=== PATIENT | male | born 1970 | race Caucasian/White ===

== ENCOUNTER → 2021-07-02 07:52 | Outpatient (BNVA) | payer OTHER, SELFPAY | PROVIDERS: Visit Provider Internal Medicine | DX: S83.91XA Sprain of unspecified site of right knee, initial encounter (principal); W23.0XXA Caught, crushed, jammed, or pinched between moving objects, initial encounter | CPT/HCPCS: 73564; 99203 ==

== ENCOUNTER → 2021-07-05 09:17 | Outpatient (BNVA) | payer OTHER, SELFPAY | PROVIDERS: Visit Provider Internal Medicine | DX: M23.91 Unspecified internal derangement of right knee (principal) | CPT/HCPCS: 99213 ==

== ENCOUNTER → 2021-07-08 11:03 | Outpatient (BNVA) | payer OTHER, SELFPAY | PROVIDERS: Visit Provider Internal Medicine | DX: M23.91 Unspecified internal derangement of right knee (principal) | CPT/HCPCS: 99213 ==

== ENCOUNTER → 2021-07-15 07:44 | Outpatient (BNVA) | payer OTHER, SELFPAY | PROVIDERS: Visit Provider Internal Medicine | DX: M23.91 Unspecified internal derangement of right knee (principal); M25.461 Effusion, right knee | CPT/HCPCS: 99213 ==

== ENCOUNTER 2021-07-15 08:28 | Outpatient (REF) | payer OTHER, SELFPAY ==
[2021-07-15 09:00] LABS: COVID-19 Test Negative (Negative)
== END 2021-07-15 08:29 | disposition home or self-care (01) ==
LOC: HO.LAB 08:28
PROVIDERS: Visit Provider Internal Medicine
DX: Z20.822 Contact with and (suspected) exposure to COVID-19 (principal)
CPT/HCPCS: 36415; 87635; C9803

== ENCOUNTER 2021-07-26 18:42 | Outpatient (REF) | payer OTHER, SELFPAY ==
--- NOTE | ~2021-07-26 | MR_ITS ---
EXAMINATION: MR KNEE WITHOUT CONTRAST, RIGHT CLINICAL INFORMATION: Pain status post twisting injury. Effusion. Crepitus. COMPARISON: Radiographs dated 07/02/2021. TECHNIQUE: MRI of the knee without contrast was performed using routine sequences on a high-field scanner. FINDINGS: MENISCI: Medial Meniscus: There is a complex tear of the posterior horn and body medial meniscus with partial extrusion of the body. A 1 cm flap fragment at the meniscal body is displaced proximally in the medial meniscofemoral recess (image 15/28 of series 5). There is a corresponding defect in the meniscal body just posterior to this with minimal residual intact orthotopic meniscal tissue. A horizontal cleavage components of the tear terminate the posterior horn with associated free edge fraying. Lateral Meniscus: Intact. LIGAMENTS: Cruciate: ACL is diminutive, either due to developmental variation or an old partial tear. There is mass effect upon the ACL produced by femoral osteophytes at the lateral margin of the intercondylar notch. PCL is normal. Collateral: There is a small amount of fluid in the MCL bursa. MCL is otherwise unremarkable. LCL complex is normal. EXTENSOR MECHANISM: Insall-Salvati ratio is 0.74, indicating patella baja. Patellar enthesopathic spur is present at the quadriceps tendon insertion. Mild proximal patellar tendinosis. Quadriceps and patellar tendons are intact. ARTICULAR CARTILAGE/BONE: Patellofemoral Compartment: Moderate nonuniform articular cartilage loss at the patella is most pronounced centrally where there is full-thickness chondral fissuring. Mbqzekri-ee-ssmni marginal osteophytes. Additional moderate nonuniform articular cartilage loss is present at the trochlea with full-thickness chondral fissuring and articular cortical irregularity. Normal trochlear morphology. Medial Compartment: There is moderate diffuse nonuniform articular cartilage loss at the medial femoral condyle with foci of full-thickness chondral fissuring. More fgsl-rk-iomrikhz cartilage loss is present at the medial tibial plateau. Moderate-sized marginal osteophytes. Lateral Compartment: Moderate-sized marginal osteophytes. There is usxv-qk-hwohkhuy nonuniform cartilage loss at the lateral tibial plateau along the medial margin. A 1.3 x 1 cm high-grade chondral defect is present at the posterior weightbearing surface with associated central osteophyte. There is full-thickness chondral fissuring at the posterior margin of the lateral tibial plateau. Proximal tibiofibular joint: There is moderate osteoarthritis at the proximal tibiofibular joint. A small non-articular fracture is suspected just anterior to the proximal tibiofibular joint along the lateral aspect of the tibial plateau at the attachment of the tibiofibular joint capsule. This is likely subacute in nature. The surrounding marrow signal is edematous. JOINT FLUID AND BURSAE: Small joint effusion and Muñoz's cyst. A plane of scar tissue is present in the prepatellar soft tissues with mild surrounding edema signal, likely due to chronic changes of prepatellar bursitis. MR/MR knee RT wo con IMPRESSION: 1. Moderate tricompartmental osteoarthritis, most pronounced in the medial compartment. 2. Complex tear of the posterior horn and body of the medial meniscus. 3. Nondisplaced fracture at the non-articular margin of the lateral tibial plateau just anterior to the proximal tibiofibular joint, likely subacute. Surrounding marrow edema. 4. Patella baja with mild patellar tendinosis. 5. Chronic changes of prepatellar bursitis.
== END 2021-07-26 18:43 | disposition home or self-care (01) ==
LOC: HO.MRI 18:42
PROVIDERS: Visit Provider Internal Medicine
DX: M25.561 Pain in right knee (principal)
CPT/HCPCS: 73721

== ENCOUNTER → 2024-11-28 09:33 | Outpatient (BNVA) | payer OTHER, SELFPAY | PROVIDERS: Visit Provider Physician Assistant | DX: S60.851A Superficial foreign body of right wrist, initial encounter (principal); W45.8XXA Other foreign body or object entering through skin, initial encounter | CPT/HCPCS: 99204 ==

== ENCOUNTER 2024-11-29 13:08 | Outpatient (AMB) | payer OTHER, SELFPAY ==
--- NOTE | 2024-11-29 13:17 | A.OFFVIS_ITS ---
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 Patient reports that his hand slipped causing a splinter to his right palm. He was seen at work connection who attempted to remove splinter. They were unsuccessful and he was referred to hand surgery. Currently he has very mild discomfort, if any. No numbness or tingling. He does not recall any drainage, stating he washes his hands frequently. He continues taking amoxicillin that was prescribed by work connection. 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 Patient reports that his hand slipped causing a splinter to his right palm. He was seen at work connection who attempted to remove splinter. They were unsuccessful and he was referred to hand surgery. Currently he has very mild discomfort, if any. No numbness or tingling. He does not recall any drainage, stating he washes his hands frequently. He continues ta antonietta amoxicillin that was prescribed by work connection. 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 Neuro: Normal sensation of the tips of all digits of the right hand at this time Vascular: Cap refill brisk Pain: No tenderness to palpation about small wound on right wrist] No pain with range of motion of right hand ROM: Patient is able to make a closed fist and extend all digits of the right hand fully Skin: Small, punctate wound with no active discharge or bleeding noted on the volar aspect of the right wrist just radial to the midline General: No ecchymosis, erythema, or evidence of infection. Psych: Appears grossly normal Affect normal Attitude cooperative Assessment & Plan Assessment & Plan (1) Foreign body of right wrist: Code(s): S60.851A - Superficial foreign body of right wrist, initial encounter Category: Medical Plan 1. Foreign body of right wrist I educated the patient about the condition. I discussed both operative and nonoperative treatment options. The patient would like to proceed with surgery. The risks and benefits of operative treatment were discussed with the patient and the patient wishes to proceed with surgery. These risks include, but are not limited to, risk of damage to blood vessels, nerves, tendons, infection, recurrence, incomplete relief of preoperative symptoms, persistent pain, possible need for further surgery, and the risks associated with regional blocks and/or anesthesia. Plan is to take the patient to the operating room at some point in the next few weeks for the following procedures: 1. Right wrist foreign body removal under general All of the preoperative paperwork including the consent was discussed today. All of the patient's questions were answered in the clinic today. The patient understands that they will be in contact with our neurosurgical physician assistant to discuss scheduling their procedure. Patient denies diabetes, blood thinners, asthma, heart issues, lung issues, kidney issues, or current smoking. 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 and ?I guess I will probably see you on Monday? Coding Level of Care Code New Pt Level 4 (68537) Diagnoses Foreign body of right wrist S60.851A
--- OUTSIDE RECORDS SUMMARY | 2024-11-29 13:35 | XMS_ITS | Clinical Summary ---
[facility] Organization [facility] it Address [address] [place] [address] Care Team Providers Care Rn Ostomy Name Role Phone Job Santos MD Primary Care Provider [phone] Social History Tobacco Use Types Packs/Day Years Used Date Smoking Tobacco: Never Assessed Sex and Gender Information Value Date Recorded Sex Assigned at Not on file Legal Sex Male 6:09 AM EST Gender Identity Not on file Sexual Orientation Not on file Last Filed Vital Signs Vital Sign Reading Time Taken Comments Blood Pressure 158/90 05/21/2022 4:20 PM EDT L A rm Pulse 90 05/21/2022 4:20 PM EDT Temperature - - Respiratory Rate - - Oxygen Saturation - - Inhaled Oxygen Concentration - - Weight - - Height - - Body Mass Index - - Plan of Treatment Health Maintenance Due Date Last Done Comments Hepatitis B Vaccines (1 of 3 - 19+ 3-dose series) 11/24/1987 Pneumococcal Vaccine: 50+ Ye ars (1 of 1 - PCV) 2018 Zoster Vaccines (1 of 2) 2018 Cholesterol Screening (Lipid Panel) 07/03/2022 Colorectal Cancer Screening: Colonoscopy 07/03/2022 Depression Screening 07/03/2022 HIV Screening 07/03/2022 Hepatitis C Screening 07/03/2022 Social Influencers of Health Screening 07/03/2022 COVID-19 Vaccine ( - 2023-2 5 season) 2024 Influenza Vaccine (Season Ended) 2025 DTaP,Tdap,and Td Vaccines (2 - Td or Tdap) 03/14/2033 03/14/2023 HIB Vaccines Aged Out No longer eligi ble based on patient's age to complete this topic HPV Vaccines Aged Out No longer eligi ble based on patient's age to complete this topic Hepatitis A Vaccines Aged Out No long er eligible based on patient's age to complete this topic IPV Vaccines Aged Out No longer eligi ble based on patient's age to complete this topic MMR Vaccines Aged Out No longer eligi ble based on patient's age to complete this topic Meningococcal ACWY Vaccine Aged Out N o longer eligible based on patient's age to complete this topic Meningococcal B Vaccine Aged Out No l onger eligible based on patient's age to complete this topic Pneumococcal Vaccine: Pediat rics (0 to 5 Years) and At-Risk Patients (6 to 64 Years) Aged Out No longer eligi ble based on patient's age to complete this topic RSV Immunization Patients Un chio 20 months Aged Out No longer eligible b ased on patient's age to complete this topic Varicella Vaccines Aged Out No longer eligible based on patient's age to complete this topic Care Teams Rn Ostomy Relationship Specialty Start Date End Date Job Santos MD [address] [address] PCP - General Internal Medicine 10/17/11
== END 2024-11-29 13:45 | disposition home or self-care (01) ==
LOC: HO.HOS 13:15
DX: S60.851A Superficial foreign body of right wrist, initial encounter (principal)
CPT/HCPCS: 99204

== ENCOUNTER → 2024-11-29 13:08 | Outpatient (BNVA) | payer OTHER, SELFPAY | DX: S60.851A Superficial foreign body of right wrist, initial encounter (principal); W45.8XXA Other foreign body or object entering through skin, initial encounter; Y93.9 Activity, unspecified; Y92.9 Unspecified place or not applicable; Y99.0 Civilian activity done for income or pay | CPT/HCPCS: 99202 ==

== ENCOUNTER 2024-12-02 09:10 | Day surgery (SDC) | payer OTHER, SELFPAY ==
--- OUTSIDE RECORDS SUMMARY | 2024-11-29 14:13 | XMS_ITS | Clinical Summary ---
Author Organization [facility] it Address [address] [place] [address] Care Team Providers Care Corrugator Helper Name Role Phone Job Santos MD Primary Care Provider [phone] Social History Tobacco Use Types Packs/Day Years [...] age to complete this topic Care Teams Corrugator Helper Relationship Specialty Start Date End Date Job Santos MD [address] [address] PCP - General Internal Medicine 10/17/11
--- NOTE | 2024-12-02 09:06 | HO.ANESPROP2 ---
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 Meds Allergies Allergy/AdvReac Type Severity Reaction Status Date / Time No Known Allergies Allergy Verified 11/29/24 13:21 Home Medications ?Medication ?Instructions ?Recorded ?Confirmed ?Last Taken ?Type amlodipine 5 mg tablet 5 mg PO DAILY 11/29/24 11/29/24 Unknown History cyclobenzaprine 10 mg tablet 10 mg PO TID 11/29/24 11/29/24 Unknown History ibuprofen 800 mg tablet 800 mg PO TID PRN pain 11/29/24 11/29/24 Unknown History lisinopril 20 1 tab PO DAILY 11/29/24 11/29/24 Unknown History mg-hydrochlorothiazide 25 mg tablet Exam Airway Mallampati Class: II TM Dist: >3cm Neck ROM: Full Assessment and Plan Assessment Anesthesia Assessment: Anesthesia Plan Discussed and Chart Reviewed Final Anesthetic Review Family History of Problems with Anesthesia: No History of Problems with Anesthesia: No NPO: Yes ASA Class: II Final Preanesthetic Review: No Changes in Pt Med Stat, Meds/Allgs Chart Reviewed, Consent Obtained/Reviewed and Anes Risks/Benef Reviewed Patient Risk: Low Procedure Risk: Low Anesthetic Plan Anesthetic Plan: GA Disposition: Standard PACU
[2024-12-02 10:26] VITALS: BP 125/81; PULSE 68; RESP 14; TEMP 36.4; O2SAT 96
[2024-12-02] MEDS: Lactated Ringers 1,000 ML 80 ML IVCONT (11:26)
--- NOTE | 2024-12-02 12:20 | MHC.SHP ---
Pre-Procedural Eval Section A - 24 Hr Update-Section A only Date of Service: 12/02/24 The patient is an INPATIENT: No Changes since office visit: No Cold of Flu in the past 2 weeks, No New Medical Problems, No Changes in Medication and No Patient answered all questions The patient has been examined within 24 hours of the surgical procedure. The History & Physical has been completed within 30 days and I have reviewed it.: Yes Section B - Complete if H&P > 30 days Chief Complaint: foreign body of left wrist, initial Allergies: Allergies Allergy/AdvReac Type Severity Reaction Status Date / Time No Known Allergies Allergy Verified 12/02/24 10:29 Plan I have reviewed the history and physical and performed a pertinent physical examination on my patient. No changes have occurred unless specified. Time Spent With Patient Time: Total time managing care of this patient today ____ minutes.
--- NOTE | 2024-12-02 12:21 | P.OP_ITS ---
Operative Note Operative Note Date of Service: 12/02/24 Narrative: Operative Note Narrative: Preop diagnosis: 1. right hand foreign body Postop diagnosis: Same Procedure: 1. Right hand removal of foreign body, subcutaneous Surgeon: Marilu Tirado MD Garage Construction Equipment Mechanic: None Anesthesia: General Anesthesia Findings: A 10 mm by 2 mm diameter wooden foreign body was removed from the subcutaneous tissues of the thenar mass just radial to the carpal tunnel Implants: None Tourniquet time: 15 minutes EBL: 5.0 ml Specimen: None Drains: None Complications: None Disposition: Brought to the recovery room in stable condition Plan: Follow-up in 10-14 days for wound check, suture removal Indications: The patient is a 54 year old man with a wooden splinter in the thenar aspect of his right hand just radial to the carpal tunnel. . The risks and benefits of operative treatment, including but not limited to risk of damage to blood vessels, nerves, tendons, infection, recurrence, persistent pain or numbness, incomplete resolution of preoperative symptoms, or need for further surgery were discussed with the patient and they wished to proceed with surgery. In preop hold the patient help me identify the entry point of the foreign body in the direction of its path. Procedure: Once consent was obtained patient was brought back to the operating suite and placed in the operating table in a supine position. . Perioperative antibiotics and anesthesia was administered by the anesthesia team. A tourniquet was applied to the proximal aspect of the right upper extremity and the limb was prepped and draped in a standard surgical fashion. The limb was elevated exsanguinated with Esmarch bandage and the tourniquet inflated to 250 mm of mercury for a total tourniquet time of 15 minutes. I made a 2 cm longitudinal incision over the thenar mass just radial to the carpal tunnel. This was made from the entry point of the foreign body extending proximally in the direction of its path. The incision was made through the skin to the subcutaneous tissues using a 15. Blade. We dissected into the subcutaneous tissues looking for the foreign body. There was a wooden foreign body identified in the subcutaneous tissues it measured 10 mm x 2 mm diameter. I removed it from the patient. No further foreign bodies were identified. The wound was then irrigated with normal saline. At this point the tourniquet was deflated and hemostasis obtained with a brief period of local pressure. The skin edges were reapproximated with 5-0 nylon suture. The wound was infiltrated with some 1% lidocaine with epinephrine for postop pain control and a sterile dressing was applied. The patient appears to have tolerated the procedure well and with no complications. All digits were well vascularized conclusion of the case.
[2024-12-02 13:32] VITALS: BP 102/59; PULSE 67; RESP 16; TEMP 36.5; O2SAT 97
[2024-12-02 13:35] VITALS: BP 99/59; PULSE 67; RESP 16; O2SAT 97
[2024-12-02 13:40] VITALS: BP 107/62; PULSE 68; RESP 16; O2SAT 97
[2024-12-02 13:45] VITALS: BP 109/63; PULSE 68; RESP 16; O2SAT 97
== END 2024-12-02 14:46 | disposition home or self-care (01) ==
PROVIDERS: Visit Provider Orthopaedic Surgery
PROC: (CPT 10120; principal; 2024-12-02 11:50)
DX: S60.551A Superficial foreign body of right hand, initial encounter (principal); W45.8XXA Other foreign body or object entering through skin, initial encounter; W22.8XXA Striking against or struck by other objects, initial encounter; Y93.9 Activity, unspecified; Y92.69 Other specified industrial and construction area as the place of occurrence of the external cause; Y99.0 Civilian activity done for income or pay; Z79.1 Long term (current) use of non-steroidal anti-inflammatories (NSAID); Z79.899 Other long term (current) drug therapy; Z98.890 Other specified postprocedural states
CPT/HCPCS: 10120; J0690; J1100; J2003; J2004; J2371; J2405; J2704; J3010

== ENCOUNTER → 2024-12-02 09:10 | Outpatient (BNV) | payer OTHER, SELFPAY | PROVIDERS: Visit Provider Orthopaedic Surgery | DX: S60.551A Superficial foreign body of right hand, initial encounter (principal) | CPT/HCPCS: 10120 ==

== ENCOUNTER 2024-12-17 15:00 | Outpatient (AMB) | payer OTHER, SELFPAY ==
--- NOTE | 2024-12-17 15:21 | A.OFFVIS_ITS ---
Intake Visit Reasons: PO LT wrist foreign body removal 12/02/24 AR Intake Note: Issac 54 yr old male presents today for his P/O visit for his left wrist foreign body removal DOS 12/02/[address] Tirado. States he is doing well just some soreness and aches. Allergies No Known Allergies Allergy (Verified 12/17/24 15:28) HPI HPI PO LT wrist foreign body removal 12/02/24 AR: Details: Issac is a 54 year old right hand dominant man who presents S/P right hand removal of foreign body, DOS: 12/02/24. He had an accident at work and got a splinter into his hand, DOI: 11/28/24. This is a work related injury. He says he is doing well overall. He reports some occasional tingling at times. 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 Sutures removed and Steri-Strips applied Wound appeared somewhat moist today, patient reports wearing a Band-aid for 9+ hours today He can make a fist and extend all his digits Smooth & painless wrist ROM Sensation is intact Cap refill is brisk Operative findings from 12/02/24: A 10 mm by 2 mm diameter wooden foreign body was removed from the subcutaneous tissues of the thenar mass just radial to the carpal tunnel Psych Appearance: grossly normal Affect: normal affect Attitude: cooperative Assessment & Plan Assessment & Plan (1) Foreign body of right hand: Code(s): S60.551A - Superficial foreign body of right hand, initial encounter Category: Medical Plan Assessment & Plan: 1. Right hand foreign body, S/P removal DOS: 12/02/24 DOI: 11/28/24 This is a work-related injury The patient appears to be doing well post-operatively I educated him about the post-operative course I explained the signs and symptoms of infection, if the patient develops any new or worsening erythema, drainage, pain, or warmth they should contact the clinic or attend the ED. 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 He was given a note for work to remain on light duty for the next week, keeping his surgical site clean & dry. He will return to full duty effective 12/24/24. He can follow up prn Scribed for Marilu Tirado MD by Denny Jacobs, medical records receptionist, on 12/17/24 at 3:30 PM, EST. Coding Level of Care Code Global (86396) Diagnoses Foreign body of right hand S60.551A
--- OUTSIDE RECORDS SUMMARY | 2024-12-17 16:07 | XMS_ITS | Clinical Summary ---
Author Organization [facility] it Address [address] [place] [address] Care Team Providers Care Credentialing Manager Name Role Phone Job Santos MD Primary Care Provider [phone] Social History Tobacco Use Types Packs/Day Years [...] age to complete this topic Care Teams Credentialing Manager Relationship Specialty Start Date End Date Job Santos MD [address] [address] PCP - General Internal Medicine 10/17/11
== END 2024-12-17 15:56 | disposition home or self-care (01) ==
LOC: HO.HOS 15:01
PROVIDERS: Visit Provider Orthopaedic Surgery
DX: S60.551A Superficial foreign body of right hand, initial encounter (principal)
CPT/HCPCS: 99024

== ENCOUNTER → 2024-12-17 15:00 | Outpatient (BNVA) | payer OTHER, SELFPAY | PROVIDERS: Visit Provider Orthopaedic Surgery | DX: S60.551A Superficial foreign body of right hand, initial encounter (principal) | CPT/HCPCS: 99212 ==